=== PATIENT | female | born 1995 | race Caucasian/White ===

== ENCOUNTER 2016-11-10 12:14 | Emergency (ER) | payer OTHER ==
[2016-11-10 12:22] VITALS: BP 104/63
--- NOTE | 2016-11-10 12:57 | UC ---
Complaint Female HPI - History Of Current Complaint Chief Complaint: [facility]CGU Stated Complaint: UTI Time Seen by Provider: 11/10/16 12:44 Hx Obtained From: Patient Hx Last Menstrual Period: 3 weeks ago ?: No - IUD Onset/Duration: Sudden Onset - awoke this am with burning and frequent urination Timing: Constant Severity Initially: Moderate Severity Currently: Moderate Character: Burning Aggravating Factor(s): Urination Alleviating Factor(s): Meds - AZO Associated Signs And Symptoms: Positive: Negative - Allergies/Home Medications Allergies/Adverse Reactions: Allergies Allergy/AdvReac Type Severity Reaction Status Date / Time Sulfa Antibiotics Allergy Hives Verified 11/10/16 12:22 Home Medications: Home Medications Azo 11/10/16 [History] PMH/Surg Hx/FS Hx/Imm Hx Previously Healthy: Yes - Surgical History Surgical History: Yes Surgery Procedure, Year, and Place: Appendectomy - Family History Known Family History: Positive: None - Social History Occupation: Student Lives: With Family Alcohol Use: Occasionally Substance Use Type: None Smoking Status (MU): Never Smoked Tobacco - Immunization History Most Recent Influenza Vaccination: 2012 Most Recent Tetanus Shot: 2013 Most Recent Pneumonia Vaccination: Did not have Review of Systems Constitutional: Negative Respiratory: Negative Cardiovascular: Negative Genitourinary: Dysuria, Frequency Musculoskeletal: Negative Neurological: Negative Psychological: Negative All Other Systems Reviewed And Are Negative: Yes Physical Exam Triage Information Reviewed: Yes Appearance: Well-Appearing, No Pain Distress, Well-Nourished Vital Signs: Initial Vital Signs Temp 97.7 F 11/10/16 12:17 Pulse 56 11/10/16 12:17 Resp 16 11/10/16 12:17 BP 104/63 11/10/16 12:17 Pulse Ox 100 11/10/16 12:17 Vital Signs Reviewed: Yes Respiratory Exam: Normal Cardiovascular Exam: Normal Abdominal Exam: Normal Abdomen Description: Positive: Nontender, No Organomegaly, Soft Bowel Sounds: Positive: Present Neurological Exam: Normal Psychological Exam: Normal Skin Exam: Normal Complaint Female Dx - Differential Dx/Diagnosis Differential Diagnosis/HQI/PQRI: Sexually Transmitted Disease, Urinary Tract Infection Provider Diagnoses: UTI Discharge - Discharge Plan Condition: Good Disposition: HOME Prescriptions: Ciprofloxacin HCl [Cipro 500 MG TAB] 500 mg PO BID #10 tab Patient Education Materials: Urinary Tract Infection in Women (ED) Additional Instructions: drink plenty of fluids use AZO for 48h then stop recheck if no better 3 days
== END 2016-11-10 13:02 | disposition home or self-care (01) ==
LOC: UCEAST 12:14
DX: N39.0 Urinary tract infection, site not specified (principal); Z88.2 Allergy status to sulfonamides; Z88.1 Allergy status to other antibiotic agents
CPT/HCPCS: 81003; 87086; 99212; G0463